=== PATIENT | female | born 1955 ===

== ENCOUNTER 2020-09-19 07:50 | Day surgery (SDC) | payer OTHER ==
[~2020-09-19 07:50] MED LIST: ATORVASTATIN CA20 MG PO; AZOR 5-20 MG T1 EACH PO; FENOFIBRATE145 MG PO; ZYLOPRIM300 MG PO
[2020-09-19] MEDS ORDERED: DUI500 PO (13:24)
[2020-09-19] MEDS ORDERED: PERCOCET 5-3251 EACH PO (13:24)
[2020-09-19] MEDS ORDERED: ALEVE220 M1 PO (13:24)
== END 2020-09-19 18:15 | disposition home or self-care (01) ==
LOC: CIR.AMB 07:50
PROVIDERS: ATTEND Orthopaedic Surgery
DX: S46.012A Strain of muscle(s) and tendon(s) of the rotator cuff of left shoulder, initial encounter (principal); Z20.822 Contact with and (suspected) exposure to COVID-19